=== PATIENT | female | born 1960 | race Caucasian/White ===

== ENCOUNTER 2019-11-01 15:14 | Outpatient (CLI) | payer OTHER ==
--- NOTE | 2019-11-01 15:06 | ULT ---
BILATERAL RENAL ULTRASOUND HISTORY: Chronic renal disease FINDINGS: The right kidney measures 9.2 cm in length and the left kidney measures 9.8 cm in length. No focal ma ss, shadowing calculus or hydronephrosis is seen on either side. Cortical echogenicity and thickness is normal. The urinary bladder is well distended with a volume of 120 cc and is grossly unr emarkable. IMPRESSION: No significant abnormalities are identified.
== END 2019-11-01 15:15 | disposition home or self-care (01) ==
LOC: BICULT 15:14
PROVIDERS: ATTEND Internal Medicine Nephrology
DX: N18.3 Chronic kidney disease, stage 3 (moderate) (principal)
CPT/HCPCS: 76770